=== PATIENT | female | born 1980 | race Caucasian/White ===

== ENCOUNTER → 2021-08-11 12:56 | Outpatient (CLI) | payer OTHER, SELFPAY ==
[2021-08-11 20:52] LABS: HIV 1 & 2 Ab/Ag 4th Gen Combo NEGATIVE (NEGATIVE); Hep C Virus Ab w/Reflex Quant NEGATIVE s/c (NEGATIVE); Hepatitis B Surface Antigen POSITIVE s/c (NEGATIVE)
== END ==
PROVIDERS: PCP Obstetrics & Gynecology; Visit Provider Family Medicine
DX: Z77.21 Contact with and (suspected) exposure to potentially hazardous body fluids (principal); W46.1XXA Contact with contaminated hypodermic needle, initial encounter
CPT/HCPCS: 86803; 87340; 87389

== ENCOUNTER → 2021-08-12 09:16 | Outpatient (CLI) | payer OTHER, SELFPAY ==
[2021-08-13 06:30] LABS: Hepatitis B Core AB w/Reflex Negative (Negative)
[2021-08-13 12:57] LABS: Hepatitis B Core IgM Negative (Negative)
== END ==
PROVIDERS: PCP Obstetrics & Gynecology; Visit Provider Physician Assistant Medical
DX: R76.8 Other specified abnormal immunological findings in serum (principal); W46.1XXA Contact with contaminated hypodermic needle, initial encounter
CPT/HCPCS: 86704; 86705

== ENCOUNTER → 2023-12-24 09:04 | Outpatient (CLI) | payer OTHER, SELFPAY ==
[2023-12-24 20:16] LABS: Hepatitis B Surface Antigen POSITIVE s/c (NEGATIVE)
[2023-12-24 20:34] LABS: HIV 1 & 2 Ab/Ag 4th Gen Combo NEGATIVE (NEGATIVE); Hep C Virus Ab w/Reflex Quant NEGATIVE s/c (NEGATIVE)
[2023-12-27 04:46] LABS: Hepatitis Be Antibody Non Reactive (Negative)
== END ==
PROVIDERS: PCP Physician Assistant; Visit Provider Physician Assistant
DX: Z77.21 Contact with and (suspected) exposure to potentially hazardous body fluids (principal); W46.1XXA Contact with contaminated hypodermic needle, initial encounter
CPT/HCPCS: 86707; 86803; 87340; 87389

== ENCOUNTER → 2024-11-05 08:07 | Outpatient (CLI) | payer OTHER, SELFPAY ==
[2024-11-06 15:52] LABS: Hepatitis B Surface Antigen POSITIVE s/c (NEGATIVE)
[2024-11-06 16:22] LABS: HIV 1 & 2 Ab/Ag 4th Gen Combo NEGATIVE (NEGATIVE); Hep C Virus Ab w/Reflex Quant NEGATIVE s/c (NEGATIVE)
== END ==
PROVIDERS: PCP Physician Assistant; Visit Provider Physician Assistant
DX: Z01.84 Encounter for antibody response examination (principal); Z77.21 Contact with and (suspected) exposure to potentially hazardous body fluids
CPT/HCPCS: 86317; 86803; 87340; 87389